=== PATIENT | female | born 1990 | race Hispanic/Latino ===

== ENCOUNTER 2019-01-08 19:31 | Emergency (ER) | payer OTHER ==
--- NOTE | 2019-01-08 20:45 | ED PDOC ---
HPI: Hypertension/Hypotension Time Seen by Provider: 01/08/19 19:47 Chief Complaint (Nursing): High Blood Pressure Chief Complaint (Provider): High Blood Pressure History Per: Patient History/Exam Limitations: no limitations Onset/Duration Of Symptoms: Days (x2) Current Symptoms Are (Timing): Still Present Additional Complaint(s): 28 y/o female who is six weeks postpardum presents to the ED for evaluation of HTN for two days while at home. Patient notes of having pre-eclampsia with both . Patient notes of being started on labetalol after her first pregnanc y. Patient reports of having a normal blood pressure throughout this postpardum period until yesterday. Otherwise, patient denies abdominal pain, confusion and chest pain. Patient notes her highest blood pressure while at home measured at 148/93. Patient states that after her first she had elevated liver enzymes and low platelets. Patient states she was not fully diagnosed with HELLP Syndrome. SOFTWARE QUALITY TEST ENGINEER: Antony Hu Past Medical History Reviewed: Historical Data, Nursing Documentation, Vital Signs Vital Signs: Last Vital Signs Temp 97.5 F L 01/08/19 19:38 Pulse 77 01/08/19 19:38 Resp 16 01/08/19 19:38 BP 149/91 H 01/08/19 19:38 Pulse Ox 99 01/08/19 19:38 - Medical History PMH: HTN - Surgical History Surgical History: No Surg Hx - Family History Family History: States: Unknown Family Hx - Home Medications Home Medications: Ambulatory Orders Medication Instructions Recorded Cephalexin [Keflex] 500 mg PO BID #10 capsule 01/08/19 - Allergies Allergies/Adverse Reactions: Allergies Allergy/AdvReac Type Severity Reaction Status Date / Time nifedipine [From Procardia] Allergy ANAPHYLAXIS Verified 01/08/19 19:39 Review of Systems ROS Statement: Except As Marked, All Systems Reviewed And Found Negative Constitutional: Positive for: Other (elevated blood pressure) Physical Exam - Reviewed Nursing Documentation Reviewed: Yes Vital Signs Reviewed: Yes - Physical Exam Appears: Positive for: No Acute Distress (patient was during evalu ation) Head Exam: Positive for: ATRAUMATIC, NORMOCEPHALIC Skin: Positive for: Normal Color, Warm, Dry Eye Exam: Positive for: Normal appearance, EOMI, PERRL Neck: Positive for: Normal, Painless ROM Cardiovascular/Chest: Positive for: Regular Rate, Rhythm. Negative for: Murmur Respiratory: Positive for: Normal Breath Sounds. Negative for: Respiratory Distress Gastrointestinal/Abdominal: Positive for: Normal Exam, Soft. Negative for: Tenderness Back: Positive for: Normal Inspection. Negative for: L CVA Tenderness, R CVA Tenderness, Vertebral Tenderness Extremity: Positive for: Normal ROM. Negative for: Deformity Neurological/Psych: Positive for: Awake, Alert, Oriented - Laboratory Results Result Diagrams: 01/08/19 20:40 01/08/19 20:40 - ECG O2 Sat by Pulse Oximetry: 99 (RA) Pulse Ox Interpretation: Normal Medical Decision Making Medical Decision Making: Time: 2000 A/P: Workup for HELLP syndrome/HTN -- Basic labs -- Consult with SOFTWARE QUALITY TEST ENGINEER -- Reassess patient -- CMP -- CBC with Differentials -- CXR Portable -- Urinalysis Time: 2146 -- Labs unremarkable. Blood pressure within normal limits since being in the ED. Patient reports of no symptoms at presents and states she feels fine. When m entioned results of the Urinalysis to the patient, patient reporting of notice dark and froppy urine. Patient admits to a history of frequent UTIs. Patient to be discharged with a prescription for Keflex which is safe with . Patient to call GOLF CART ATTENDANT and discuss results as well as follow up to the outpatient SOFTWARE QUALITY TEST ENGINEER. Patient instructed to return if symptoms worsens. Scribe Attestation: Documented by Elijah Gardner, acting as a scribe Rudi Machado MD. Provider Scribe Attestation: All medical record entries made by the Scribe were at my direction and personally dictated by me. I have reviewed the chart and agree that the record accurately reflects my personal performance of the history, physical exam, medical decision making, and the department course for this patient. I have also personally directed, reviewed, and agree with the discharge instructions and disposition. Disposition - Clinical Impression Clinical Impression: High blood pressure, Urinary tract infection - Patient ED Disposition Is Patient to be Admitted: No Counseled Patient/Family Regarding: Studies Performed, Diagnosis - Disposition Disposition: Routine/Home Disposition Time: 21:47 Condition: IMPROVED Additional Instructions: Call your integration software developer in the morning to discuss results and antibiotics for urinary tract obstruction. Return to the emergency department if symptoms worsen or if new symptoms develop. Prescriptions: Cephalexin [Keflex] 500 mg PO BID #10 capsule Instructions: High Blood Pressure (DC), Urinary Tract Infection, Adult (DC) Forms: [employer] (Spanish) Print Language: ALB[place]IAN
[2019-01-08 20:55] LABS: BASO % 0.3 % (0.0-2.0); EOS # 0.1 K/uL (0.0-0.7); EOS % 1.4 % (0.0-4.0); LYMPH # 1.6 K/uL (1.0-4.3); LYMPH % 18.3 % (20.0-40.0); MEAN CELL VOLUME 84.3 fl (81.0-99.0); MEAN CORPUSCULAR HEMOGLOBIN 27.6 pg (27.0-31.0); MEAN CORPUSCULAR HGB CONC 32.7 g/dL (33.0-37.0); MEAN PLATELET VOLUME 7.7 fl (7.2-11.7); MONO # 0.4 K/uL (0.0-0.8); MONO % 4.6 % (0.0-10.0); NEUT # 6.7 K/uL (1.8-7.0); NEUT % 75.4 % (50.0-75.0); NRBC % 0.1 % (0.0-0.0); RBC 4.34 Mil/uL (3.80-5.20); RED CELL DISTRIBUTION WIDTH 13.6 % (11.5-14.5); WHITE BLOOD COUNT 8.9 K/uL (4.8-10.8)
[2019-01-08 21:18] LABS: SQUAMOUS EPITHIAL 4 /hpf (0-5); URINE BACTERIA RARE (<OCC); URINE BILIRUBIN NEGATIVE (NEGATIVE); URINE CLARITY SLIGHTY-CLOUDY (Clear); URINE COLOR YELLOW (YELLOW); URINE GLUCOSE (UA) NEG (NEGATIVE); URINE LEUKOCYTE ESTERASE LARGE Leu/uL (Negative); URINE PROTEIN NEGATIVE (NEGATIVE); URINE UROBILINOGEN 0.2-1.0 mg/dL (0.2-1.0)
[2019-01-08 21:21] LABS: URINE BLOOD TRACE (NEGATIVE)
[2019-01-08 21:24] LABS: ALB/GLOB RATIO 1.3 (1.0-2.1); ALBUMIN 4.3 g/dL (3.5-5.0); ALT/SGPT 33 U/L (9-52); AST/SGOT 26 U/L (14-36); BLOOD UREA NITROGEN 12 mg/dl (7-17); CALCIUM 9.8 mg/dL (8.4-10.2); GFR NON-AFRICAN AMERICAN > 60
[2019-01-08 22:54] VITALS: BP 119/71; PULSE 66; RESP 18; TEMP 98.7
--- NOTE | 2019-01-09 09:02 | RAD ---
APPROVED REPORT Date of service: 01/08/2019 EKG Measurement Heart [id number] <Conclusion> Sinus bradycardia Otherwise normal ECG
[2019-01-09 19:11] VITALS: O2SAT 99
== END 2019-01-08 22:52 | disposition home or self-care (01) ==
LOC: H.ER 19:31
DX: I10 Essential (primary) hypertension (principal); O23.41 Unspecified infection of urinary tract in pregnancy, first trimester; O26.91 Pregnancy related conditions, unspecified, first trimester; D69.6 Thrombocytopenia, unspecified; Z87.440 Personal history of urinary (tract) infections